=== PATIENT | male | born 1945 | race Caucasian/White ===

== ENCOUNTER 2022-09-25 21:16 | Emergency (ER) | payer OTHER ==
[~2022-09-25] VITALS: Ht 172.7 cm; Wt 83.9 kg
[2022-09-25] MEDS ORDERED: SIMVASTATIN5 MG PO (21:27)
[2022-09-25] MEDS ORDERED: TRAZODONE HCL150 MG PO (21:27)
[2022-09-25] MEDS ORDERED: COZAAR25 MG PO (21:27)
[2022-09-25] MEDS ORDERED: TALTZ AUTO80 MG/1 ML SUBCUTANEO (21:28)
[2022-09-26] MEDS ORDERED: CEFDINIR300 MG PO (03:16)
[2022-09-26] MEDS ORDERED: TAMS0.4C PO (03:16)
== END 2022-09-26 03:45 | disposition home or self-care (01) ==
LOC: ER 21:16
DX: N41.9 Inflammatory disease of prostate, unspecified (principal); N39.0 Urinary tract infection, site not specified; R31.9 Hematuria, unspecified